=== PATIENT | female | born 1955 | race African-American/Black ===

== ENCOUNTER 2018-05-14 18:46 | Emergency (ER) | payer SELFPAY, OTHER ==
[2018-05-14] MEDS ORDERED: Acetaminophen 500 MG TAB ONE (19:19)
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
== END 2018-05-14 20:07 | disposition home or self-care (01) ==
LOC: SCSER 18:46
DX: S13.4XXA Sprain of ligaments of cervical spine, initial encounter (principal); K21.9 Gastro-esophageal reflux disease without esophagitis; I10 Essential (primary) hypertension; V49.9XXA Car occupant (driver) (passenger) injured in unspecified traffic accident, initial encounter
CPT/HCPCS: 72125